=== PATIENT | female | born 1940 | race Caucasian/White ===

== ENCOUNTER 2018-12-01 23:59 | Emergency (ER) | payer OTHER ==
[~2018-12-01] VITALS: Ht 152.4 cm; Wt 74.8 kg
--- NOTE | 2018-12-02 00:12 | NUR ---
PT [id number] FROM [place] FOR FEVER X 1 DAY. PT HARD OF HEARING. PT AOX3. NAD NOTED. RESP EVEN AND UNLABORED. PT ON MONITOR IN BED 1. WILL CONTINUE TO MONITOR.
[2018-12-02] MEDS ORDERED: IV NS 0.9% 1,000 ML BAG IV ONE ×2 (01:00→03:30)
[2018-12-02] MEDS ORDERED: CEFTRIAXONE 1GM BAG (ER ONLY) 50 ML IV ONE ×2 (01:00→01:12)
[2018-12-02 01:03] LABS: BASOPHILS # (AUTO) 0.1 /CMM (0.0-0.2); BASOPHILS % (AUTO) 0.3 % (0.0-2.0); EOSINOPHILS % (AUTO) 0.3 % (0.0-6.0); HEMATOCRIT 43 % (33-45); LYMPHOCYTES # (AUTO) 4.1 /CMM (0.8-4.8); MEAN CORPUSCULAR HGB CONC 33 g/dl (31.0-36.0); MEAN CORPUSCULAR VOLUME 89 fL (82-100); MONOCYTES # (AUTO) 0.3 /CMM (0.1-1.30); MONOCYTES % (AUTO) 1.6 % (2.0-12.0); NEUTROPHILS % (AUTO) 76.8 % (43.0-81.0); PLATELET COUNT (AUTO) 259 /CMM (150-450); RED BLOOD CELL COUNT(AUTO) 4.81 MIL/uL (4.0-5.2); WHITE BLOOD COUNT (AUTO) 19.5 K/uL (4.3-11.0)
--- NOTE | 2018-12-02 01:04 | NUR ---
RHAND 20G INITIATED. BLOOD DRAWN AND GIVEN TO LAB.
--- NOTE | 2018-12-02 01:05 | NUR ---
URINE COLLECTED AND SENT TO LAB
--- NOTE | 2018-12-02 01:10 | NUR ---
TECH AT BEDSIDE FOR EKG
[2018-12-02 01:12] LABS: CALCIUM, SERUM 10.1 mg/dL (8.5-10.1); CARBON DIOXIDE 24 mmol/L (21-32); CHLORIDE 100 mmol/L (98-107); CREATININE 0.9 mg/dL (0.6-1.3); GLUCOSE 160 mg/dL (74-106); POTASSIUM 3.7 mmol/L (3.5-5.1); SODIUM SERUM 136 mmol/L (136-145); UREA NITROGEN, BLOOD 10 mg/dL (7-18)
[2018-12-02 01:15] LABS: APPEARANCE,URINE Cloudy (CLEAR); BILIRUBIN,URINE Negative (NEGATIVE); BLOOD, URINE Moderate Ery/uL (NEGATIVE); COLOR,URINE Yellow (YELLOW); KETONES,URINE Negative (NEGATIVE); LEUKOCYTE ESTERASE ,URINE Large (NEGATIVE); NITRITE, URINE Positive (NEGATIVE); PH,URINE 8.5 (5.0-8.0); PROTEIN,URINE 100 mg/dl (NEGATIVE); UGLUCOSE Negative (NEGATIVE); UROBILINOGEN,URINE 0.2 EU/dL (0.2)
[2018-12-02 01:25] LABS: ALANINE AMINOTRANSFERASE 20 U/L (12-78); ALKALINE PHOSPHATASE 80 U/L (46-116); ASPARTATE AMINOTRANSFERASE 18 U/L (15-37); B-TYPE NATRIURETIC PEPTIDE 111 PG/ML (0-125); BILIRUBIN,DIRECT 0.1 mg/dL (0.0-0.2); BILIRUBIN,TOTAL 0.4 mg/dL (0.2-1.0); TOTAL PROTEIN, SERUM 7.8 g/dL (6.4-8.2)
[2018-12-02 02:04] LABS: BACTERIA,URINE Few /HPF (None Seen); SQUAMOUS EPITHELIAL CELL,UR Few /HPF (None Seen); WBC,URINE 51-80 /HPF (0-3)
--- NOTE | 2018-12-02 03:09 | NUR ---
Brooke snyder in [facility] - 12/02/18 at 0309 by OSCAR FACUNDO MITCHELL
[2018-12-02] MEDS ORDERED: ASPIRIN 81 MG TAB.CHEW ONE (03:14)
[2018-12-02] MEDS ORDERED: ASPIRIN 81 MG TAB.CHEW PO ONE (03:30)
[2018-12-02 03:41] VITALS: BP 102/43
--- NOTE | 2018-12-02 03:53 | NUR ---
TRANSFER INFO: ALS TRANSPORT TO [facility] CALL [phone] FOR REPORT ACCEPTING Amanda REED
--- NOTE | 2018-12-02 04:18 | NUR ---
REPORT GIVEN NIKITA MCLEOD FOR TRANSPORT PRN.
--- NOTE | 2018-12-02 04:25 | NUR ---
REPORT GIVEN TO HARSHA LU AT [facility] FOR [facility]
== END 2018-12-02 04:32 | disposition short-term general hospital (02) ==
LOC: ER 12-02 00:07
DX: N39.0 Urinary tract infection, site not specified (principal); R65.20 Severe sepsis without septic shock; G35 Multiple sclerosis; E87.2 Acidosis; R79.89 Other specified abnormal findings of blood chemistry; I10 Essential (primary) hypertension; M19.90 Unspecified osteoarthritis, unspecified site; F32.9 Major depressive disorder, single episode, unspecified; Z98.890 Other specified postprocedural states; Z88.8 Allergy status to other drugs, medicaments and biological substances
CPT/HCPCS: 36415; 71045; 80048; 80076; 81001; 83605 ×2; 83880; 84484; 85025; 85730; 87040 ×2; 87086; 93005; 96365; 99285; J0696; J7030 ×2; J7040; 81000-TC

== ENCOUNTER 2019-03-04 03:39 | Inpatient (IN) | payer OTHER ==
[~2019-03-04] VITALS: Ht 152.4 cm; Wt 66.7 kg
[2019-03-04] VITALS (18 sets, daily range): BP systolic 85–133; BP diastolic 49–75
[2019-03-04 04:07] LABS: BASOPHILS # (AUTO) 0.1 /CMM (0.0-0.2); BASOPHILS % (AUTO) 0.4 % (0.0-2.0); HEMATOCRIT 45 % (33-45); HEMOGLOBIN 15.1 g/dL (11.5-14.8); LYMPHOCYTES % (AUTO) 22.1 % (20.0-44.0); MEAN CORPUSCULAR HGB CONC 33 g/dl (31.0-36.0); MEAN CORPUSCULAR VOLUME 88 fL (82-100); MONOCYTES # (AUTO) 0.9 /CMM (0.1-1.30); MONOCYTES % (AUTO) 3.2 % (2.0-12.0); NEUTROPHILS # (AUTO) 20.4 /CMM (1.8-8.9); NEUTROPHILS % (AUTO) 74.3 % (43.0-81.0); PLATELET COUNT (AUTO) 271 /CMM (150-450); RED BLOOD CELL COUNT(AUTO) 5.16 MIL/uL (4.0-5.2); WHITE BLOOD COUNT (AUTO) 27.4 K/uL (4.3-11.0)
[2019-03-04] MEDS ORDERED: ACETAMINOPHEN 650 MG/SUPP.RECT RC ONE ×2 (04:07→04:30)
[2019-03-04 04:19] LABS: CALCIUM, SERUM 10.2 mg/dL (8.5-10.1); CARBON DIOXIDE 23 mmol/L (21-32); CHLORIDE 95 mmol/L (98-107); CREATININE 1.8 mg/dL (0.6-1.3); GLUCOSE 188 mg/dL (74-106); POTASSIUM 4.4 mmol/L (3.5-5.1); SODIUM SERUM 132 mmol/L (136-145); UREA NITROGEN, BLOOD 20 mg/dL (7-18)
[2019-03-04 04:24] LABS: ALANINE AMINOTRANSFERASE 19 U/L (12-78); ALBUMIN 3.2 g/dL (3.4-5.0); ALKALINE PHOSPHATASE 89 U/L (46-116); ASPARTATE AMINOTRANSFERASE 20 U/L (15-37); BILIRUBIN,DIRECT 0.2 mg/dL (0.0-0.2); BILIRUBIN,TOTAL 0.8 mg/dL (0.2-1.0); TOTAL PROTEIN, SERUM 8.4 g/dL (6.4-8.2)
[2019-03-04] MEDS ORDERED: PIPERACILLIN /TAZOBACTAM 3.375 G in IV D5W 50 ML IV ONE (04:30)
[2019-03-04] MEDS ORDERED: IV NS 0.9% 1,000 ML BAG IV ONE ×3 (04:30→09:00)
[2019-03-04] MEDS ORDERED: VANCOMYCIN 1 GM in IV D5W 250 ML IV ONE (04:30)
--- NOTE | 2019-03-04 04:36 | NUR ---
LACTIC ACID 4.0. ER AWARE
[2019-03-04] MEDS ORDERED: PIPERACILLIN /TAZOBACTAM 3.375 G VIAL IV ONE (04:37)
[2019-03-04] MEDS ORDERED: VANCOMYCIN 1 GM VIAL ONE (04:37)
[2019-03-04 04:57] LABS: APPEARANCE,URINE TURBID (CLEAR); COLOR,URINE DARK YELLOW (YELLOW)
[2019-03-04 04:58] LABS: LEUKOCYTE ESTERASE ,URINE 3+ (NEGATIVE); NITRITE, URINE POSITIVE (NEGATIVE); PROTEIN,URINE 4+ mg/dl (NEGATIVE); UROBILINOGEN,URINE NORMAL EU/dL (0.2)
[2019-03-04 04:59] LABS: BLOOD, URINE 3+ Ery/uL (NEGATIVE); PH,URINE 8.5 (5.0-8.0)
[2019-03-04 05:00] LABS: BILIRUBIN,URINE NEGATIVE (NEGATIVE); KETONES,URINE NEGATIVE (NEGATIVE); UGLUCOSE NEGATIVE (NEGATIVE)
--- NOTE | 2019-03-04 05:00 | NUR ---
DEREK [facility]. TO ER BED 12. AAOX3. BREATHING FAST BUT REGULAR. C/O SOB SINCE LAST NIGHT. PT REPORTS THAT THIS HAPPENS TO HER WHEN SHA HAVE A UTI. URINE NOTE WITH PYURIA, FOULD ODOR AND WITH SEDIMENT. SUPRA PUBIC CATH INPLACE AND PATENT. PT IS NOTED TACHY CARDIC IN THE HIGH 120-130S. RECTAL TEMP 103. WAS AT BEDSIDE FOR EVAL. ORDERS RECEIVED NOTED AND CARRIED OUT. IV LINE OBTAINED ON R HAND W/ 18G AND L HAND W/ 20G. BLOOD DRAWN AND CULTURES COLLECTED. URINE SENT TO LAB. PT PLACE ON MONITOR.
--- NOTE | 2019-03-04 05:08 | NUR ---
[facility] PAGED. AWAITING CALLBACK
[2019-03-04 05:12] LABS: RBC,URINE 21-50 /HPF (0-2)
[2019-03-04 05:13] LABS: BACTERIA,URINE Moderate /HPF (None Seen); MUCUS,URINE Moderate /LPF (None Seen); SQUAMOUS EPITHELIAL CELL,UR Few /HPF (None Seen); WBC,URINE TOO NUMEROUS TO COUN /HPF (0-3)
--- NOTE | 2019-03-04 05:28 | NUR ---
SPOKE WITH DR. WEINBERG [facility]. WANT TO HAVE A REPEAT LACTIC ACID AFTER FLUID CHALLENGE
--- NOTE | 2019-03-04 06:19 | NUR ---
PT WILL TRANSFER TO [facility] ER PER INSURANCE REQUEST ACCEPTING MD: DR. CHAMBERS NUMBER FOR REPORT: [phone] ETA ALS TRANSPORTATION: [id number]
--- NOTE | 2019-03-04 06:37 | NUR ---
REFLEX LACTIC 2.8
--- NOTE | 2019-03-04 06:48 | NUR ---
REPORT GIVEN TO HARSHA RUFF FOR [facility] AT [facility].
--- NOTE | 2019-03-04 07:12 | NUR ---
PAGED [facility].
--- NOTE | 2019-03-04 07:15 | NUR ---
PAGED NURSING SUP FOR [facility] BED.
--- NOTE | 2019-03-04 07:19 | NUR ---
CORRECTION. PT NEEDS ICU BED. PAGED NURSING SUP.
--- NOTE | 2019-03-04 07:32 | NUR ---
RECEIVED REPORT FROM ELISHA MCLEOD. PATIENT AWAKE, ALERT AND ORIENTED X 3, NO ACUTE DISTRESS. DENIES ANY PAIN OR DISCOMFORT. SUPRAPUBIC CATH IN PLACE WITH PINK COLORED URINE, NOTED WITH SEDIMENTS. ORAL TEMP TAKEN WITH RESULT OF 98.2. WILL CONTINUE TO MONITOR
[2019-03-04] MEDS ORDERED: ATOR10TA PO (07:43)
[2019-03-04] MEDS ORDERED: ALEN70TA6 PO (07:43)
[2019-03-04] MEDS ORDERED: DOCU-141 PO (07:43)
[2019-03-04] MEDS ORDERED: METH1TAB30 PO (07:43)
[2019-03-04] MEDS ORDERED: PARO40TA4 PO (07:43)
[2019-03-04] MEDS ORDERED: POLY17PO4 PO (07:43)
[2019-03-04] MEDS ORDERED: BISA10SU11 RC (07:43)
[2019-03-04] MEDS ORDERED: IBUP-2269 PO (07:43)
[2019-03-04] MEDS ORDERED: SENN-168 PO (07:43)
[2019-03-04] MEDS ORDERED: LACT10SO PO (07:43)
[2019-03-04] MEDS ORDERED: CHOL100044 PO (07:43)
[2019-03-04] MEDS ORDERED: HYDR59LO5 TP (07:43)
[2019-03-04] MEDS ORDERED: ATEN25TA PO (07:43)
[2019-03-04] MEDS ORDERED: CLOT15CR63 TP (07:43)
[2019-03-04] MEDS ORDERED: [UNRECOGNIZED DRUG - CODE] PO (07:43)
[2019-03-04] MEDS ORDERED: LOPE2CAP PO (07:43)
[2019-03-04] MEDS ORDERED: ACET-868 PO (07:43)
--- NOTE | 2019-03-04 07:59 | NUR ---
REPORT GIVEN TO MELANIE MCLEOD FOR [facility]
--- NOTE | 2019-03-04 08:25 | NUR ---
RN INITIAL NOTES RECEIVED PT FROM ER. PT A/OX4. ON 02 VIA NC AT 2LPM. NO RESPIRATORY DISTRESS NOTED. NO SOB NOTED. DENIES ANY PAIN. TRANSFERRED TO BED AND CONNECTED TO MONITOR. IV LINES IN PLACE. FLUSHED WITH NS. SUPRAPUBIC CATH IN PLACE, YELLOW CLOUDY URINE NOTED. SKIN ASSESSMENT DONE, SKIN INTACT. PT ORIENTED TO ROOM AND USE OF CALL LIGHT. DR DIXON NOTIFIED OF ADMISSION. AWAITING FOR ADMISSION ORDERS. WILL CLOSELY MONITOR
[2019-03-04] MEDS: CLOTRIMAZOLE 1% CREAM 24 GM TUBE TP SCH ×2 (09:00→16:13)
[2019-03-04] MEDS ORDERED: Medication Not On Formulary EA (Methenamine Hippurate 1 GM) PO SCH (09:00)
[2019-03-04] MEDS ORDERED: ONDANSETRON HCL/PF 4 MG/2 ML VIAL IVP PRN (09:00)
[2019-03-04] MEDS ORDERED: ACETAMINOPHEN 325 MG TABLET PO PRN ×2 (09:00)
[2019-03-04] MEDS: CHOLECALCIFEROL 1,000 UNIT TABLET (VIT D3) PO SCH (09:38)
[2019-03-04] MEDS: PAROXETINE HCL 10 MG TABLET PO SCH (09:38)
[2019-03-04] MEDS: DOCUSATE SODIUM 100 MG CAPSULE PO SCH ×2 (09:38→16:12)
[2019-03-04] MEDS: HYDROCORTISONE 2.5% LOTION 59 ML BOTTLE TP SCH ×2 (11:50→21:29)
[2019-03-04] MEDS: IV NS 0.9% 1,000 ML IV PRN (11:51)
[2019-03-04] MEDS ORDERED: PIPERACILLIN /TAZOBACTAM 4.5 G in IV D5W 100 ML IV SCH (12:00)
[2019-03-04] MEDS: PIPERACILLIN /TAZOBACTAM 3.375 G in IV D5W 100 ML IV SCH (13:38)
--- NOTE | 2019-03-04 18:21 | NUR ---
RN CLOSING NOTES PT REMAINS STABLE. NO SIGNIFICANT CHANGE NOTED. REMAINS ON 02 VIA NC. DENIES ANY PAIN. IVF INFUSING. SUPRAPUBIC CATH IN PLACE. BLE ELEVATED. KEPT CLEAN AND DRY. REPOSITIONED. WILL ENDORSE FOR CONTINUITY OF CARE.
--- NOTE | 2019-03-04 19:20 | NUR ---
BASKETBALL REFEREE. INITIAL ASSESSMENT. RECEIVED THE PT REST ON THE BED. AWAKE, ALERT FOLLOW COMMANDS. IT COMMUNICATIONS MANAGER SHOWING NSR. OXYGEN 2L VIA NASAL CANNULA. SAT 98%. NO ACUTE DISTRESS NOTED. SUPRA PUBIC CATHETER INTACT. HOB ELEVATED. IV RT AND LT HAND 18 AND 20G. IVF NS 100 ML/H. WILL CONTINUE TO MONITOR VITALS.
[2019-03-04] MEDS ORDERED: BISACODYL SUPP (10 MG) 10 MG/SUPP.RECT SUPP.RECT RC PRN (20:00)
[2019-03-04] MEDS ORDERED: IBUPROFEN 400 MG TABLET PO PRN (20:30)
[2019-03-04] MEDS ORDERED: SENNOSIDES 8.6 MG TABLET PO SCH (22:00)
[2019-03-05] VITALS (19 sets, daily range): BP systolic 96–121; BP diastolic 18–78
[2019-03-05] MEDS: PIPERACILLIN /TAZOBACTAM 3.375 G in IV D5W 100 ML IV SCH ×2 (01:00→12:06)
[2019-03-05] MEDS ORDERED: IBUPROFEN 400 MG TABLET PO PRN (03:00)
--- NOTE | 2019-03-05 03:04 | NUR ---
FRONT SERVICES AGENT. AM CARE. ORAL CARE, BED BATH GIVEN. LINEN CHANGED. REMAINING SAME OXGEN TOLERATED WELL SAT 98%. ARDIAC MONITOR SHOWING S ACH AFEBRILE. TURN AND REPOSITION Q2H. WILL CONTINUE TO MONITOR VITALS.IVF [id number]. HOB ELEVATED. FC PATENT. URINE DRAINING. WILL CONTINUE TO MONITOR VITALS.
[2019-03-05] MEDS: IV NS 0.9% 1,000 ML IV PRN (03:08)
--- NOTE | 2019-03-05 03:17 | NUR ---
LABELING ASSOCIATE. AM CARE, ORAL CARE, BED BATH GIVEN. LINEN CHANGED, REMAINING SAME VENT SETTING TOLEARTED WELL. SAT 98%.O ACUTE DISTRESS NOTED. DRIVER SALESMAN SHOWING AT THIS TIME NSR. IV RT UPPER ARM PICC LINE CRISPIN 150MCG/MIN RUNNING. FLEX SEAL INTACT. GT LOW INTERMITTENT SUCTION. AFEBRILE. TURN AND REPOSITION Q2H. WILL CONTINUE TO MONITOR VITALS. Addendum: 03/05/19 at 0323 by MAIA BURNS RN TASK DIFFERENT PT. PT REMAINING SAME OXYGEN TOLERATED WELL SAT 99%. NO ACUTE DISTRESS NOTED. DRIVER SALESMAN SHOWING NSR, IV RT HAND 20G. IVF NS 100ML/H. HOB ELEVATED,, FC PATENT. URINE DRAINING, HOB ELEVBATED TURN AND REPOSITION Q2H. WILL CONTINUE TO MONITOR VITALS.
[2019-03-05 04:51] LABS: BASOPHILS % (AUTO) 0.1 % (0.0-2.0); EOSINOPHILS % (AUTO) 0.1 % (0.0-6.0); HEMATOCRIT 34 % (33-45); HEMOGLOBIN 11.2 g/dL (11.5-14.8); LYMPHOCYTES # (AUTO) 4.4 /CMM (0.8-4.8); LYMPHOCYTES % (AUTO) 22.2 % (20.0-44.0); MEAN CORPUSCULAR HGB CONC 33 g/dl (31.0-36.0); MEAN CORPUSCULAR VOLUME 90 fL (82-100); MONOCYTES # (AUTO) 0.5 /CMM (0.1-1.30); MONOCYTES % (AUTO) 2.6 % (2.0-12.0); NEUTROPHILS # (AUTO) 14.8 /CMM (1.8-8.9); PLATELET COUNT (AUTO) 180 /CMM (150-450); RED BLOOD CELL COUNT(AUTO) 3.82 MIL/uL (4.0-5.2); WHITE BLOOD COUNT (AUTO) 19.7 K/uL (4.3-11.0)
[2019-03-05 05:18] LABS: ALANINE AMINOTRANSFERASE 16 U/L (12-78); ALKALINE PHOSPHATASE 70 U/L (46-116); ASPARTATE AMINOTRANSFERASE 18 U/L (15-37); BILIRUBIN,TOTAL 0.4 mg/dL (0.2-1.0); CALCIUM, SERUM 7.8 mg/dL (8.5-10.1); CARBON DIOXIDE 18 mmol/L (21-32); CHLORIDE 106 mmol/L (98-107); CREATININE 1.7 mg/dL (0.6-1.3); GLUCOSE 108 mg/dL (74-106); POTASSIUM 3.4 mmol/L (3.5-5.1); SODIUM SERUM 135 mmol/L (136-145); TOTAL PROTEIN, SERUM 5.6 g/dL (6.4-8.2); UREA NITROGEN, BLOOD 18 mg/dL (7-18)
--- NOTE | 2019-03-05 07:20 | NUR ---
RN INITIAL NOTES RECEIVED PT ASLEEP, EASY TO AROUSE. ON 02 VIA NC AT 2LPM. HOB ELEVATED. NO SOB NOTED. NO SIGNS OF PAIN NOTED. IV LINES IN PLACE. IVF INFUSING. SUPRAPUBIC CATH IN PLACE. BLE ELEVATED. REPOSITIONED. CALL LIGHT WITHIN REACH. WILL MONITOR
[2019-03-05] MEDS: PAROXETINE HCL 10 MG TABLET PO SCH (08:43)
[2019-03-05] MEDS: HYDROCORTISONE 2.5% LOTION 59 ML BOTTLE TP SCH (08:43)
[2019-03-05] MEDS: DOCUSATE SODIUM 100 MG CAPSULE PO SCH ×2 (08:43→16:50)
[2019-03-05] MEDS: CHOLECALCIFEROL 1,000 UNIT TABLET (VIT D3) PO SCH (08:43)
[2019-03-05] MEDS: CLOTRIMAZOLE 1% CREAM 24 GM TUBE TP SCH ×2 (09:35→16:51)
[2019-03-05] MEDS ORDERED: POTASSIUM CHLORIDE 10 MEQ TABLET.SA PO ONE (10:30)
--- NOTE | 2019-03-05 11:00 | NUR ---
RN NOTES SEEN AND EXAMINED BY DR WOLF. AWARE OF LAB VALUES. PT AFEBRILE. ON IV ATB. NO ASE NOTED. PT STABLE TO BE TRANSFERRED TO [place] DUE TO INSURANCE REASONS. CASE MANAGEMENT NOTIFIED. PT AWARE OF TRANSFER
[2019-03-05 11:26] LABS: APPEARANCE,URINE TURBID (CLEAR); COLOR,URINE Light yellow (YELLOW); PH,URINE 6.5 (5.0-8.0); PROTEIN,URINE 1+ mg/dl (NEGATIVE)
[2019-03-05 11:27] LABS: BILIRUBIN,URINE NEGATIVE (NEGATIVE); BLOOD, URINE 3+ Ery/uL (NEGATIVE); KETONES,URINE NEGATIVE (NEGATIVE); UGLUCOSE NEGATIVE (NEGATIVE)
[2019-03-05 11:28] LABS: LEUKOCYTE ESTERASE ,URINE 2+ (NEGATIVE); NITRITE, URINE NEGATIVE (NEGATIVE); UROBILINOGEN,URINE 0.2 EU/dL (0.2)
[2019-03-05 11:40] LABS: BACTERIA,URINE Many /HPF (None Seen); SQUAMOUS EPITHELIAL CELL,UR Few /HPF (None Seen); WBC,URINE 51-80 /HPF (0-3)
[2019-03-05 11:50] LABS: CREATININE, URINE 36.3 MG/DL (30.0-125.0); URINE TOTAL PROTEIN 123.8 mg/dL (0-11.9)
[2019-03-05 13:15] LABS: EOSINOPHIL,URINE None Seen
--- NOTE | 2019-03-05 17:04 | NUR ---
RN NOTES CALLED [facility] FOR REPORT([phone]). SPOKE WITH HARSHA GAN. ALL PERTINENT INFORMATION GIVEN. GOING TO ROOM 5211-B UNDER DR GUPTA. P/U TIME AT 1730. PT AWARE
--- NOTE | 2019-03-05 17:50 | NUR ---
RN NOTES PT TRANSFERRED TO [facility]IA [facility]. PT A/OX4. ON ROOM AIR. NO SOB NOTED. DENIES ANY PAIN. SUPRAPUBIC CATH IN PLACE. LEFT IN STABLE CONDITION
[2019-03-10] MEDS ORDERED: ALENDRONATE 70 MG TABLET PO SCH (07:30)
== END 2019-03-05 17:53 | disposition short-term general hospital (02) | DRG 871 ==
LOC: ER 03:39 → ICU 07:41
PROVIDERS: ADMIT Internal Medicine; ATTEND Student in an Organized Health Care Education/Training Program
DX: A41.9 Sepsis, unspecified organism (principal); N17.0 Acute kidney failure with tubular necrosis; E87.2 Acidosis; E87.1 Hypo-osmolality and hyponatremia; J98.11 Atelectasis; N30.00 Acute cystitis without hematuria; G35 Multiple sclerosis; M19.90 Unspecified osteoarthritis, unspecified site; M81.0 Age-related osteoporosis without current pathological fracture; F32.9 Major depressive disorder, single episode, unspecified; Z79.899 Other long term (current) drug therapy; Z93.6 Other artificial openings of urinary tract status; I10 Essential (primary) hypertension; E78.5 Hyperlipidemia, unspecified; R32 Unspecified urinary incontinence; I70.0 Atherosclerosis of aorta; N20.0 Calculus of kidney; Z87.440 Personal history of urinary (tract) infections; R65.20 Severe sepsis without septic shock
CPT/HCPCS: 36415; 71045-TC; 76770-TC; 80048-TC; 80053-TC; 80076-TC; 81000-TC; 82570-TC; 83605-TC; 84155-TC; 84300-TC; 84484-TC; 85025-TC; 85730-TC; 87040-TC; 87081-TC; 87086-TC; 87186-TC; G0378; J2543; J3370; J7030; J7040; J7060

== ENCOUNTER 2020-11-26 22:32 | Emergency (ER) | payer OTHER ==
[~2020-11-26] VITALS: Ht 152.4 cm; Wt 57.2 kg
[~2020-11-26 22:32] MED LIST: ACET-868 PO; ALEN70TA80 PO; ATEN25TA PO; ATOR10TA PO; BISA10SU11 RC; CHOL100044 PO; CLOT15CR27 TP; DOCU-141 PO; HYDR59LO5 TP; IBUP-2715 PO; LACT10SO3 PO; LOPE2CAP PO; METH1TAB69 PO; PARO40TA4 PO; POLY17PO4 PO; SENN-261 PO; [UNRECOGNIZED DRUG - CODE] PO
--- NOTE | 2020-11-26 22:42 | NUR ---
bibra c/o blood in nephrostomy bags since noon today. pt aaox4 breathing evenly and unlabored. Pt attached to monitor and pox. Pt given blanket and call light within reach. SKin is warm and dry. MD at bedside. WIll continue to monitor.
--- NOTE | 2020-11-26 22:50 | NUR ---
blood obtained and sent to lab
[2020-11-26 23:11] LABS: BASOPHILS % (AUTO) 0.3 % (0.0-2.0); HEMATOCRIT 40 % (33-45); HEMOGLOBIN 13.1 g/dL (11.5-14.8); LYMPHOCYTES # (AUTO) 6.5 K/uL (0.8-4.8); MEAN CORPUSCULAR HGB CONC 32 g/dl (31.0-36.0); MEAN CORPUSCULAR VOLUME 88 fL (82-100); MONOCYTES # (AUTO) 0.6 K/uL (0.1-1.30); MONOCYTES % (AUTO) 5.2 % (2.0-12.0); NEUTROPHILS # (AUTO) 4.3 K/uL (1.8-8.9); NEUTROPHILS % (AUTO) 36.5 % (43.0-81.0); PLATELET COUNT (AUTO) 291 K/uL (150-450); RED BLOOD CELL COUNT(AUTO) 4.59 MIL/uL (4.0-5.2); WHITE BLOOD COUNT (AUTO) 11.7 K/uL (4.3-11.0)
--- NOTE | 2020-11-26 23:16 | NUR ---
swab taken to lab
[2020-11-26 23:18] LABS: CALCIUM, SERUM 9.3 mg/dL (8.5-10.1); CREATININE 1.1 mg/dL (0.6-1.3); POTASSIUM 4.3 mmol/L (3.5-5.1)
[2020-11-26 23:24] LABS: ALBUMIN 2.9 g/dL (3.4-5.0); BILIRUBIN,TOTAL 0.1 mg/dL (0.2-1.0)
--- NOTE | 2020-11-27 00:46 | NUR ---
called lab to f/u about urine, running now
--- NOTE | 2020-11-27 00:50 | NUR ---
[facility].
--- NOTE | 2020-11-27 00:56 | NUR ---
RAYMUNDO SNOW TALKING TO [facility] MD LONG REGARDING PT.
[2020-11-27 01:07] LABS: COLOR,URINE YELLOW (YELLOW)
[2020-11-27 01:08] LABS: PH,URINE 8.5 (5.0-8.0); PROTEIN,URINE 4+ mg/dl (NEGATIVE); UGLUCOSE NEGATIVE (NEGATIVE)
[2020-11-27 01:09] LABS: BILIRUBIN,URINE SMALL (NEGATIVE); NITRITE, URINE POSITIVE (NEGATIVE); UROBILINOGEN,URINE 0.2 EU/dL (0.2)
[2020-11-27 01:10] LABS: LEUKOCYTE ESTERASE ,URINE LARGE (NEGATIVE)
[2020-11-27 01:14] LABS: BACTERIA,URINE Few /HPF (None Seen); CALCIUM OXALATE CRYSTALS,UR Few /HPF (None Seen); RBC,URINE 0-2 /HPF (0-2); SQUAMOUS EPITHELIAL CELL,UR None Seen /HPF (None Seen); WBC,URINE TOO NUMEROUS TO COUN /HPF (0-3)
[2020-11-27 01:36] VITALS: BP 116/70
--- NOTE | 2020-11-27 01:38 | NUR ---
TRANSFER INFORMATION: PT ACCEPTED AT [facility] ACCEPTING MD SAAVEDRA PHONE # FOR REPORT PRN AMBULANCE BLS ETA [id number]
--- NOTE | 2020-11-27 01:40 | NUR ---
gave report to marcia berry for ramses
--- NOTE | 2020-11-27 01:46 | NUR ---
gave report to ems for ramses
[2020-11-27] MEDS ORDERED: CEFTRIAXONE 1GM BAG (ER ONLY) 50 ML IV ONE (01:49)
[2020-11-27] MEDS ORDERED: CEFTRIAXONE 1GM BAG (ER ONLY) 1 GM/50 ML PIGGYBACK IV ONE (02:00)
== END 2020-11-27 02:09 | disposition short-term general hospital (02) ==
LOC: ER 22:34
DX: N99.528 Other complication of incontinent external stoma of urinary tract (principal); N13.2 Hydronephrosis with renal and ureteral calculous obstruction; G35 Multiple sclerosis; N39.0 Urinary tract infection, site not specified; K59.00 Constipation, unspecified; D25.9 Leiomyoma of uterus, unspecified; M19.90 Unspecified osteoarthritis, unspecified site; Z20.822 Contact with and (suspected) exposure to COVID-19
CPT/HCPCS: 36415; 71045; 74176; 80048; 80076; 81001; 85025; 87077; 87086; 87186; 87426; 93005; 96365; 99285; C9803; J0696

== ENCOUNTER 2021-01-24 23:31 | Emergency (ER) | payer OTHER ==
[~2021-01-24] VITALS: Ht 152.4 cm; Wt 54.4 kg
[2021-01-24 23:34] VITALS: BP 126/49
[2021-01-24] MEDS ORDERED: WATER FOR INJECTION,STERILE 10 ML ONE (23:51)
--- NOTE | 2021-01-25 00:01 | NUR ---
suprapubic catheter change done successfully at bed side by Dr Simpson pt tolerated the procedure well.
--- NOTE | 2021-01-25 00:04 | NUR ---
CALLED [facility] REGARDING PT BEING TRANSFERRED HOME. [facility] SAID THEY WILL CALL BACK WITH ETA FOR TRANSPORT.
--- NOTE | 2021-01-25 00:36 | NUR ---
per [place] [facility] PRN eta [phone]
--- NOTE | 2021-01-25 01:14 | NUR ---
gave report to ems
== END 2021-01-25 01:14 | disposition home or self-care (01) ==
LOC: ER 23:33
DX: T83.098A Other mechanical complication of other urinary catheter, initial encounter (principal); I10 Essential (primary) hypertension; G35 Multiple sclerosis; M19.90 Unspecified osteoarthritis, unspecified site; Z98.890 Other specified postprocedural states; Z88.8 Allergy status to other drugs, medicaments and biological substances; Z79.899 Other long term (current) drug therapy